=== PATIENT | female | born 1990 | race African-American/Black ===

== ENCOUNTER 2018-08-03 14:46 | Emergency (ER) | payer SELFPAY ==
[~2018-08-03] VITALS: Ht 167.6 cm; Wt 80.0 kg
[~2018-08-03 14:46] MED LIST: ABILIFY5 MG OR; ADDERALL XR10 MG OR; CLARITIN10 MG PO; FLUOXETINE20 M2 OR; SERTRALINE50 MG OR; TRIAMCINOLON0.025 % EX; ZYRTEC5 M1 OR
[2018-08-03 18:23] VITALS: BP 131/76
== END 2018-08-03 18:30 | disposition home or self-care (01) | DRG 556 ==
LOC: ED 14:46
DX: M25.562 Pain in left knee (principal); F17.200 Nicotine dependence, unspecified, uncomplicated
CPT/HCPCS: L1830

== ENCOUNTER 2018-11-01 15:23 | Emergency (ER) | payer SELFPAY ==
[~2018-11-01] VITALS: Ht 167.6 cm; Wt 72.4 kg
[2018-11-01] MEDS ORDERED: AMOXICILLIN500 MG PO (16:09)
[2018-11-01] MEDS ORDERED: CORTISPORIN OTI10 M2 AU (16:09)
[2018-11-01 16:18] VITALS: BP 119/79
== END 2018-11-01 16:18 | disposition home or self-care (01) | DRG 153 ==
LOC: ED 15:23
DX: H66.91 Otitis media, unspecified, right ear (principal); H60.91 Unspecified otitis externa, right ear; F17.210 Nicotine dependence, cigarettes, uncomplicated

== ENCOUNTER 2018-11-29 16:34 | Emergency (ER) | payer SELFPAY ==
[~2018-11-29] VITALS: Ht 167.6 cm; Wt 63.6 kg
[~2018-11-29 16:34] MED LIST changes: +AMOXICILLIN500 MG PO; +CORTISPORIN OTI10 M2 AU
[2018-11-29] MEDS ORDERED: FLEXERIL PO (18:29)
[2018-11-29] MEDS ORDERED: ULTRAM50 M1 PO (18:29)
[2018-11-29 18:40] VITALS: BP 116/74
== END 2018-11-29 18:40 | disposition home or self-care (01) | DRG 552 ==
LOC: ED 16:34
DX: M47.816 Spondylosis without myelopathy or radiculopathy, lumbar region (principal); M54.5 Low back pain; M79.605 Pain in left leg; M79.604 Pain in right leg

== ENCOUNTER 2019-03-20 08:21 | Emergency (ER) | payer SELFPAY ==
[~2019-03-20] VITALS: Ht 167.6 cm; Wt 72.8 kg
[~2019-03-20 08:21] MED LIST changes: +FLEXERIL PO; +ULTRAM50 M1 PO
[2019-03-20] MEDS ORDERED: AMOX/K CLAV875 M1 PO (08:53)
[2019-03-20 09:03] VITALS: BP 122/83
== END 2019-03-20 09:08 | disposition home or self-care (01) | DRG 816 ==
LOC: ED 08:21
DX: R59.0 Localized enlarged lymph nodes (principal); F17.210 Nicotine dependence, cigarettes, uncomplicated

== ENCOUNTER 2019-05-27 07:23 | Emergency (ER) | payer SELFPAY ==
[~2019-05-27] VITALS: Ht 170.2 cm; Wt 69.0 kg
[~2019-05-27 07:23] MED LIST changes: +AMOX/K CLAV875 M1 PO
[2019-05-27] MEDS ORDERED: AMOXICILLIN500 M2 PO ×2 (08:27→08:46)
[2019-05-27 08:35] VITALS: BP 129/82
== END 2019-05-27 08:49 | disposition home or self-care (01) | DRG 153 ==
LOC: ED 07:23
DX: J02.0 Streptococcal pharyngitis (principal); F17.210 Nicotine dependence, cigarettes, uncomplicated

== ENCOUNTER 2019-07-13 | Emergency (ER) | payer SELFPAY ==
[~2019-07-13] MED LIST changes: +AMOXICILLIN500 M2 PO
== END 2019-07-13 21:00 | disposition home or self-care (01) | DRG 156 ==
PROC: 3E1B78Z Irrigation of Ear using Irrigating Substance, Via Natural or Artificial Opening (ICD-10-PCS; principal; 2019-07-13)
DX: H61.21 Impacted cerumen, right ear (principal); F17.210 Nicotine dependence, cigarettes, uncomplicated

== ENCOUNTER 2019-07-19 | Emergency (ER) | payer SELFPAY ==
[2019-07-19] MEDS ORDERED: AMOXICILLIN875 MG PO (11:58)
== END 2019-07-19 12:14 | disposition home or self-care (01) | DRG 153 ==
DX: J02.0 Streptococcal pharyngitis (principal); F17.210 Nicotine dependence, cigarettes, uncomplicated

== ENCOUNTER 2019-08-04 10:44 | Emergency (ER) | payer SELFPAY ==
[~2019-08-04 10:44] MED LIST changes: +AMOXICILLIN875 MG PO
[2019-08-04] MEDS ORDERED: FLOXIN OTIC0.3 % AD (11:36)
[2019-08-04 12:00] VITALS: BP 131/99
== END 2019-08-04 12:00 | disposition home or self-care (01) | DRG 156 ==
LOC: ED 10:44
DX: H60.91 Unspecified otitis externa, right ear (principal); F17.210 Nicotine dependence, cigarettes, uncomplicated

== ENCOUNTER 2019-08-28 | Emergency (ER) | payer SELFPAY ==
[~2019-08-28] MED LIST changes: +FLOXIN OTIC0.3 % AD
[2019-08-28] MEDS ORDERED: PENICILLN VK500 MG PO (16:03)
[2019-08-28] MEDS ORDERED: TORADOL PO ×2 (16:03)
== END 2019-08-28 16:08 | disposition home or self-care (01) | DRG 103 ==
DX: R51 Headache (principal); K02.9 Dental caries, unspecified; F17.210 Nicotine dependence, cigarettes, uncomplicated

== ENCOUNTER 2019-12-12 13:15 | Emergency (ER) | payer SELFPAY ==
[~2019-12-12] VITALS: Ht 170.2 cm; Wt 70.0 kg
[~2019-12-12 13:15] MED LIST changes: +PENICILLN VK500 MG PO; +TORADOL PO
[2019-12-12] MEDS ORDERED: AMOXICILLIN500 M2 PO ×2 (14:04)
[2019-12-12] MEDS ORDERED: no home med (14:07)
[2019-12-12 14:27] VITALS: BP 122/92
== END 2019-12-12 14:27 | disposition home or self-care (01) | DRG 159 ==
LOC: ED 13:15
DX: K03.81 Cracked tooth (principal); F17.200 Nicotine dependence, unspecified, uncomplicated

== ENCOUNTER 2019-12-21 23:17 | Emergency (ER) | payer SELFPAY ==
[~2019-12-21] VITALS: Ht 170.2 cm; Wt 73.0 kg
[~2019-12-21 23:17] MED LIST changes: +no home med
[2019-12-22 00:07] LABS: HEMATOCRIT 35.2 % (37.0-47.0); IMMATURE GRANULOCYTES 0.1 % (0.0-5.0); MEAN CORPUSCULAR HGB 25.7 pG CALC (26.0-32.0); MEAN CORPUSCULAR HGB CONC 32.1 g/dL CAL (32.0-36.0); NEUT# 3.88 thou/uL (2.00-7.15); RED BLOOD COUNT 4.4 mill/uL (4.20-5.60); RED CELL DISTRI WIDTH 15.3 % (11.5-15.5)
[2019-12-22 00:11] LABS: HEMOGLOBIN 11.3 g/dl (12.0-16.0)
[2019-12-22 00:14] LABS: URINE BILIRUBIN - DIPSTICK NEGATIVE (NEGATIVE); URINE BLOOD DIPSTICK NEGATIVE (NEGATIVE); URINE COLOR YELLOW; URINE GLUCOSE - DIPSTICK NEGATIVE (NEGATIVE); URINE KETONE TRACE mg/dL (NEGATIVE); URINE LEUK ESTERASE NEGATIVE (NEGATIVE); URINE NITRITE - DIPSTICK NEGATIVE (Negative); URINE PROTEIN - DIPSTICK NEGATIVE (NEG-TRACE); URINE SPECIFIC GRAVITY >=1.030
[2019-12-22 00:22] LABS: ALBUMIN 4.7 g/dL (3.2-5.0); ALKALINE PHOSPHATASE 60 u/l (38-126); AMYLASE 96 u/l (30-110); ANION GAP 11 (6-22 (CALC)); BILIRUBIN, TOTAL 0.6 mg/dL (0.0-1.4); BUN 7 mg/dL (7-17); BUN/CREATININE RATIO 9 (12-20 (CALC)); CARBON DIOXIDE 24 mmol/l (22-30); CHLORIDE 106 mmol/l (95-108); CREATININE 0.8 mg/dL (0.5-1.0); GFR > 60 ML/MIN (>=60 (CALC)); GFR FOR AFR.AMER. > 60 ML/MIN (>=60 (CALC)); LIPASE 59 u/l (23-300); POTASSIUM 3.7 mmol/l (3.5-5.1); SGOT/AST 23 u/l (14-36); SODIUM 136 mmol/l (137-146); TOTAL PROTEIN 7.7 g/dL (6.3-8.2)
[2019-12-22 02:30] VITALS: BP 127/72
== END 2019-12-22 02:35 | disposition home or self-care (01) | DRG 392 ==
LOC: ED 23:17
PROVIDERS: Emergency Medicine
DX: R10.30 Lower abdominal pain, unspecified (principal); F17.210 Nicotine dependence, cigarettes, uncomplicated
CPT/HCPCS: Q9967

== ENCOUNTER 2020-02-07 19:03 | Emergency (ER) | payer SELFPAY ==
[~2020-02-07] VITALS: Ht 167.6 cm; Wt 80.8 kg
[2020-02-07 19:58] LABS: HEMATOCRIT 37.5 % (37.0-47.0); HEMOGLOBIN 11.8 g/dl (12.0-16.0); IMMATURE GRANULOCYTES 0.2 % (0.0-5.0); MEAN CELL VOLUME 79.8 fL CALC (80.0-100.0); MEAN CORPUSCULAR HGB 25.1 pG CALC (26.0-32.0); MEAN CORPUSCULAR HGB CONC 31.5 g/dL CAL (32.0-36.0); NEUT# 2.64 thou/uL (2.00-7.15); RED BLOOD COUNT 4.7 mill/uL (4.20-5.60); RED CELL DISTRI WIDTH 15.7 % (11.5-15.5)
[2020-02-07 20:05] LABS: URINE BILIRUBIN - DIPSTICK NEGATIVE (NEGATIVE); URINE BLOOD DIPSTICK NEGATIVE (NEGATIVE); URINE COLOR YELLOW; URINE GLUCOSE - DIPSTICK NEGATIVE (NEGATIVE); URINE KETONE NEGATIVE (NEGATIVE); URINE NITRITE - DIPSTICK NEGATIVE (Negative); URINE PROTEIN - DIPSTICK NEGATIVE (NEG-TRACE); URINE UROBILINOGEN - DIPSTICK 0.2 E.U./dL (0.2)
[2020-02-07 20:09] LABS: URINE LEUK ESTERASE TRACE (NEGATIVE)
[2020-02-07 20:13] LABS: ALBUMIN 4.7 g/dL (3.2-5.0); ALKALINE PHOSPHATASE 62 u/l (38-126); AMYLASE 124 u/l (30-110); ANION GAP 12 (6-22 (CALC)); BILIRUBIN, TOTAL 0.7 mg/dL (0.0-1.4); BUN 6 mg/dL (7-17); BUN/CREATININE RATIO 7 (12-20 (CALC)); CARBON DIOXIDE 25 mmol/l (22-30); CHLORIDE 104 mmol/l (95-108); CREATININE 0.8 mg/dL (0.5-1.0); GFR > 60 ML/MIN (>=60 (CALC)); GFR FOR AFR.AMER. > 60 ML/MIN (>=60 (CALC)); LIPASE 43 u/l (23-300); POTASSIUM 3.8 mmol/l (3.5-5.1); SGOT/AST 27 u/l (14-36); SODIUM 137 mmol/l (137-146); TOTAL PROTEIN 8.5 g/dL (6.3-8.2)
[2020-02-07] MEDS ORDERED: VOLTAREN75 MG PO ×2 (20:58)
[2020-02-07 21:09] VITALS: BP 120/91
== END 2020-02-07 21:09 | disposition home or self-care (01) | DRG 552 ==
LOC: ED 19:03
PROVIDERS: Family Medicine
DX: M54.5 Low back pain (principal); F17.200 Nicotine dependence, unspecified, uncomplicated

== ENCOUNTER 2020-03-26 17:35 | Emergency (ER) | payer SELFPAY ==
[~2020-03-26] VITALS: Ht 167.6 cm; Wt 90.0 kg
[~2020-03-26 17:35] MED LIST changes: +VOLTAREN75 MG PO
[2020-03-26 21:11] LABS: URINE BILIRUBIN - DIPSTICK NEGATIVE (NEGATIVE); URINE BLOOD DIPSTICK LARGE (NEGATIVE); URINE CLARITY SL CLOUDY; URINE GLUCOSE - DIPSTICK NEGATIVE (NEGATIVE); URINE KETONE NEGATIVE (NEGATIVE); URINE LEUK ESTERASE NEGATIVE (Negative); URINE NITRITE - DIPSTICK NEGATIVE (Negative); URINE PROTEIN - DIPSTICK TRACE mg/dL (NEG-TRACE); URINE SPECIFIC GRAVITY >=1.030; URINE UROBILINOGEN - DIPSTICK 0.2 E.U./dL (0.2)
[2020-03-26 21:12] LABS: URINE COLOR AMBER
[2020-03-26 21:18] LABS: URINE RBC 50-100 RBC/hpf (0-5); URINE SQUAMOUS EPITHELIAL CELL FEW EPI/hpf (0-FEW)
[2020-03-26] MEDS ORDERED: ORPHENADRINE C100 M1 PO (23:03)
[2020-03-26] MEDS ORDERED: IBUPROFEN600 MG PO (23:03)
[2020-03-26 23:18] VITALS: BP 113/79
== END 2020-03-26 23:24 | disposition home or self-care (01) | DRG 552 ==
LOC: ED 17:35
PROVIDERS: Emergency Medicine
DX: M54.5 Low back pain (principal); M54.6 Pain in thoracic spine; F17.210 Nicotine dependence, cigarettes, uncomplicated

== ENCOUNTER 2020-04-28 14:03 | Emergency (ER) | payer SELFPAY ==
[~2020-04-28 14:03] MED LIST changes: +IBUPROFEN600 MG PO; +ORPHENADRINE C100 M1 PO
[2020-04-28] MEDS ORDERED: AMOXICILLIN875 MG PO (17:50)
== END 2020-04-28 14:45 | disposition left against medical advice (07) | DRG 951 ==
LOC: ED 14:03 → LWOBS 14:45
DX: Z53.21 Procedure and treatment not carried out due to patient leaving prior to being seen by health care provider (principal)

== ENCOUNTER 2020-04-28 16:32 | Emergency (ER) | payer SELFPAY ==
[~2020-04-28] VITALS: Ht 167.6 cm; Wt 80.0 kg
[2020-04-28] MEDS ORDERED: AMOXICILLIN875 MG PO (17:50)
[2020-04-28 17:54] VITALS: BP 131/80
== END 2020-04-28 17:54 | disposition home or self-care (01) | DRG 153 ==
LOC: ED 16:32
DX: J02.9 Acute pharyngitis, unspecified (principal); F17.200 Nicotine dependence, unspecified, uncomplicated

== ENCOUNTER 2020-07-19 14:18 | Emergency (ER) | payer SELFPAY ==
[~2020-07-19] VITALS: Ht 167.6 cm; Wt 79.5 kg
[2020-07-19] MEDS ORDERED: PENICILLN VK500 MG PO (14:42)
[2020-07-19 15:04] VITALS: BP 139/70
== END 2020-07-19 15:10 | disposition home or self-care (01) | DRG 159 ==
LOC: ED 14:18
DX: K04.7 Periapical abscess without sinus (principal); K02.9 Dental caries, unspecified; F17.200 Nicotine dependence, unspecified, uncomplicated

== ENCOUNTER 2021-01-27 16:36 | Emergency (ER) | payer SELFPAY ==
[~2021-01-27] VITALS: Ht 167.6 cm; Wt 84.1 kg
[2021-01-27 20:28] VITALS: BP 126/78
== END 2021-01-27 20:28 | disposition home or self-care (01) | DRG 556 ==
LOC: ED 16:36
DX: M79.10 Myalgia, unspecified site (principal); R05 Cough; R51.9 Headache, unspecified; F17.200 Nicotine dependence, unspecified, uncomplicated; Z20.822 Contact with and (suspected) exposure to COVID-19

== ENCOUNTER 2021-03-13 22:22 | Emergency (ER) | payer SELFPAY ==
[~2021-03-13] VITALS: Ht 167.6 cm; Wt 79.0 kg
[2021-03-13 23:22] LABS: HEMATOCRIT 35.3 % (37.0-47.0); HEMOGLOBIN 11.5 g/dl (12.0-16.0); IMMATURE GRANULOCYTES 0.1 % (0.0-5.0); MEAN CELL VOLUME 80.8 fL CALC (80.0-100.0); MEAN CORPUSCULAR HGB 26.3 pG CALC (26.0-32.0); MEAN CORPUSCULAR HGB CONC 32.6 g/dL CAL (32.0-36.0); NEUT# 3.33 thou/uL (2.00-7.15); RED BLOOD COUNT 4.37 mill/uL (4.20-5.60); RED CELL DISTRI WIDTH 16.4 % (11.5-15.5)
[2021-03-13 23:40] LABS: ALBUMIN 4.5 g/dL (3.2-5.0); ALKALINE PHOSPHATASE 74 u/l (38-126); AMYLASE 109 u/l (30-110); ANION GAP 13 (6-22 (CALC)); BUN 9 mg/dL (7-17); BUN/CREATININE RATIO 12 (12-20 (CALC)); CARBON DIOXIDE 23 mmol/l (22-30); CHLORIDE 106 mmol/l (95-108); CREATININE 0.8 mg/dL (0.5-1.0); GFR > 60 ML/MIN (>=60 (CALC)); GFR FOR AFR.AMER. > 60 ML/MIN (>=60 (CALC)); LIPASE 63 u/l (23-300); POTASSIUM 3.5 mmol/l (3.5-5.1); SGOT/AST 25 u/l (14-36); SODIUM 139 mmol/l (137-146)
[2021-03-13 23:43] LABS: BILIRUBIN, TOTAL 0.4 mg/dL (0.0-1.4)
[2021-03-13 23:44] LABS: URINE BILIRUBIN - DIPSTICK NEGATIVE (NEGATIVE); URINE BLOOD DIPSTICK NEGATIVE (NEGATIVE); URINE COLOR YELLOW; URINE GLUCOSE - DIPSTICK NEGATIVE (NEGATIVE); URINE KETONE NEGATIVE (NEGATIVE); URINE LEUK ESTERASE NEGATIVE (NEGATIVE); URINE PH 6.5 (4.5-8.0); URINE PROTEIN - DIPSTICK NEGATIVE (NEG-TRACE); URINE SPECIFIC GRAVITY <=1.005; URINE UROBILINOGEN - DIPSTICK 0.2 E.U./dL (0.2)
[2021-03-13 23:46] LABS: URINE NITRITE - DIPSTICK NEGATIVE (Negative)
[2021-03-14] MEDS ORDERED: ONDANSETRON4 MG PO (01:31)
[2021-03-14 01:53] VITALS: BP 117/72
== END 2021-03-14 02:05 | disposition home or self-care (01) | DRG 866 ==
LOC: ED 22:22
PROVIDERS: Emergency Medicine
DX: B34.9 Viral infection, unspecified (principal); F17.210 Nicotine dependence, cigarettes, uncomplicated; Z20.822 Contact with and (suspected) exposure to COVID-19
CPT/HCPCS: Q9967

== ENCOUNTER 2021-04-04 15:22 | Emergency (ER) | payer SELFPAY ==
[~2021-04-04] VITALS: Ht 167.6 cm; Wt 87.2 kg
[~2021-04-04 15:22] MED LIST changes: +ONDANSETRON4 MG PO
[2021-04-04] MEDS ORDERED: AMOXICILLIN875 MG PO (15:45)
[2021-04-04] MEDS ORDERED: CORTISPORIN OTI10 M2 AD (15:45)
[2021-04-04 15:55] VITALS: BP 130/80
== END 2021-04-04 15:55 | disposition home or self-care (01) | DRG 156 ==
LOC: ED 15:22
DX: H60.91 Unspecified otitis externa, right ear (principal); H66.91 Otitis media, unspecified, right ear; F17.210 Nicotine dependence, cigarettes, uncomplicated

== ENCOUNTER 2021-05-27 16:05 | Emergency (ER) | payer SELFPAY ==
[~2021-05-27] VITALS: Ht 167.6 cm; Wt 81.8 kg
[~2021-05-27 16:05] MED LIST changes: +CORTISPORIN OTI10 M2 AD
[2021-05-27] MEDS ORDERED: CLEOCIN300 MG PO (17:23)
[2021-05-27 17:35] VITALS: BP 131/84
== END 2021-05-27 17:35 | disposition home or self-care (01) | DRG 153 ==
LOC: ED 16:05
DX: J02.9 Acute pharyngitis, unspecified (principal); I88.9 Nonspecific lymphadenitis, unspecified; F17.210 Nicotine dependence, cigarettes, uncomplicated

== ENCOUNTER 2021-06-05 18:22 | Emergency (ER) | payer SELFPAY ==
[~2021-06-05] VITALS: Ht 167.6 cm; Wt 77.2 kg
[~2021-06-05 18:22] MED LIST changes: +CLEOCIN300 MG PO
[2021-06-05 19:15] LABS: HEMATOCRIT 38.9 % (37.0-47.0); HEMOGLOBIN 12.6 g/dl (12.0-16.0); IMMATURE GRANULOCYTES 0.1 % (0.0-5.0); MEAN CORPUSCULAR HGB 25.9 pG CALC (26.0-32.0); MEAN CORPUSCULAR HGB CONC 32.4 g/dL CAL (32.0-36.0); NEUT# 5.09 thou/uL (2.00-7.15); RED BLOOD COUNT 4.86 mill/uL (4.20-5.60); RED CELL DISTRI WIDTH 16.2 % (11.5-15.5)
[2021-06-05 19:27] LABS: ALBUMIN 4.1 g/dL (3.2-5.0); ALKALINE PHOSPHATASE 62 u/l (38-126); ANION GAP 11 (6-22 (CALC)); BILIRUBIN, TOTAL 0.6 mg/dL (0.0-1.4); BUN 11 mg/dL (7-17); BUN/CREATININE RATIO 13 (12-20 (CALC)); CARBON DIOXIDE 27 mmol/l (22-30); CHLORIDE 105 mmol/l (95-108); CREATININE 0.9 mg/dL (0.5-1.0); GFR > 60 ML/MIN (>=60 (CALC)); GFR FOR AFR.AMER. > 60 ML/MIN (>=60 (CALC)); POTASSIUM 3.4 mmol/l (3.5-5.1); SGOT/AST 22 u/l (14-36); SODIUM 139 mmol/l (137-146); TOTAL PROTEIN 7.9 g/dL (6.3-8.2)
[2021-06-05 19:39] LABS: URINE BILIRUBIN - DIPSTICK NEGATIVE (NEGATIVE); URINE BLOOD DIPSTICK NEGATIVE (NEGATIVE); URINE COLOR YELLOW; URINE GLUCOSE - DIPSTICK NEGATIVE (NEGATIVE); URINE KETONE TRACE mg/dL (NEGATIVE); URINE LEUK ESTERASE NEGATIVE (NEGATIVE); URINE PH 6.5 (4.5-8.0); URINE PROTEIN - DIPSTICK NEGATIVE (NEG-TRACE); URINE UROBILINOGEN - DIPSTICK 0.2 E.U./dL (0.2)
[2021-06-05 19:43] LABS: URINE NITRITE - DIPSTICK NEGATIVE (Negative)
[2021-06-05] MEDS ORDERED: NAPROXEN500 MG PO (22:07)
[2021-06-05 22:51] VITALS: BP 120/70
== END 2021-06-05 23:05 | disposition home or self-care (01) | DRG 761 ==
LOC: ED 18:22
PROVIDERS: Family Medicine
DX: D25.9 Leiomyoma of uterus, unspecified (principal); M79.10 Myalgia, unspecified site; F17.210 Nicotine dependence, cigarettes, uncomplicated
CPT/HCPCS: Q9967

== ENCOUNTER 2022-01-28 19:01 | Emergency (ER) | payer SELFPAY ==
[~2022-01-28] VITALS: Ht 167.6 cm; Wt 81.0 kg
[~2022-01-28 19:01] MED LIST changes: +NAPROXEN500 MG PO
[2022-01-28 19:23] VITALS: BP 132/82
[2022-01-28 19:31] VITALS: BP 122/79
[2022-01-28 20:01] VITALS: BP 122/73
[2022-01-28] MEDS ORDERED: PAXLOVID PO (20:04)
[2022-01-28 20:19] VITALS: BP 122/73
== END 2022-01-28 20:25 | disposition home or self-care (01) | DRG 179 ==
LOC: ED 19:01
DX: U07.1 COVID-19 (principal); R51.9 Headache, unspecified; M54.2 Cervicalgia; R09.81 Nasal congestion; R68.83 Chills (without fever); R19.7 Diarrhea, unspecified; F17.200 Nicotine dependence, unspecified, uncomplicated

== ENCOUNTER 2022-04-07 16:04 | Emergency (ER) | payer SELFPAY ==
[~2022-04-07] VITALS: Ht 167.6 cm; Wt 95.0 kg
[~2022-04-07 16:04] MED LIST changes: +PAXLOVID PO
[2022-04-07 16:38] LABS: URINE BILIRUBIN - DIPSTICK NEGATIVE (NEGATIVE); URINE BLOOD DIPSTICK NEGATIVE (NEGATIVE); URINE COLOR YELLOW; URINE GLUCOSE - DIPSTICK NEGATIVE (NEGATIVE); URINE KETONE NEGATIVE (NEGATIVE); URINE LEUK ESTERASE TRACE (NEGATIVE); URINE PROTEIN - DIPSTICK NEGATIVE (NEG-TRACE); URINE SPECIFIC GRAVITY 1.025; URINE UROBILINOGEN - DIPSTICK 0.2 E.U./dL (0.2)
[2022-04-07 16:40] LABS: URINE NITRITE - DIPSTICK NEGATIVE (Negative)
[2022-04-07 16:43] LABS: HEMATOCRIT 36.5 % (37.0-47.0); HEMOGLOBIN 12.1 g/dl (12.0-16.0); IMMATURE GRANULOCYTES 0.1 % (0.0-5.0); MEAN CELL VOLUME 79.7 fL CALC (80.0-100.0); MEAN CORPUSCULAR HGB 26.4 pG CALC (26.0-32.0); MEAN CORPUSCULAR HGB CONC 33.2 g/dL CAL (32.0-36.0); NEUT# 3.26 thou/uL (2.00-7.15); RED BLOOD COUNT 4.58 mill/uL (4.20-5.60)
[2022-04-07 16:50] LABS: ALBUMIN 4.9 g/dL (3.2-5.0); ALKALINE PHOSPHATASE 51 u/l (38-126); ANION GAP 14 (6-22 (CALC)); BILIRUBIN, TOTAL 0.5 mg/dL (0.0-1.4); BUN 7 mg/dL (7-17); BUN/CREATININE RATIO 10 (12-20 (CALC)); CARBON DIOXIDE 23 mmol/l (22-30); CHLORIDE 108 mmol/l (95-108); CREATININE 0.8 mg/dL (0.5-1.0); GFR FOR AFR.AMER. > 60 ML/MIN (>=60 (CALC)); GFR OTHER RACES > 60 ML/MIN (>=60 (CALC)); LIPASE 78 u/l (23-300); POTASSIUM 3.5 mmol/l (3.5-5.1); SGOT/AST 25 u/l (14-36); SODIUM 142 mmol/l (137-146)
[2022-04-07] MEDS ORDERED: KEFLEX500 MG PO (19:27)
[2022-04-07] MEDS ORDERED: NAPROXEN500 MG PO (19:27)
[2022-04-07 20:30] VITALS: BP 131/77
== END 2022-04-07 20:30 | disposition home or self-care (01) | DRG 392 ==
LOC: ED 16:04
PROVIDERS: Nurse Practitioner
DX: R10.30 Lower abdominal pain, unspecified (principal); D25.9 Leiomyoma of uterus, unspecified
CPT/HCPCS: Q9967

== ENCOUNTER 2022-12-22 14:34 | Emergency (ER) | payer SELFPAY ==
[~2022-12-22] VITALS: Ht 167.6 cm; Wt 82.0 kg
[~2022-12-22 14:34] MED LIST changes: +KEFLEX500 MG PO
[2022-12-22 14:51] VITALS: BP 126/92
[2022-12-22 15:00] VITALS: BP 127/91
[2022-12-22 15:29] LABS: URINE BILIRUBIN - DIPSTICK NEGATIVE (NEGATIVE); URINE BLOOD DIPSTICK MODERATE (NEGATIVE); URINE COLOR YELLOW; URINE GLUCOSE - DIPSTICK NEGATIVE (NEGATIVE); URINE KETONE NEGATIVE (NEGATIVE); URINE LEUK ESTERASE NEGATIVE (NEGATIVE); URINE PH 8.5 (4.5-8.0); URINE PROTEIN - DIPSTICK NEGATIVE (NEG-TRACE)
[2022-12-22 15:39] LABS: URINE NITRITE - DIPSTICK NEGATIVE (Negative)
[2022-12-22 15:40] LABS: URINE SQUAMOUS EPITHELIAL CELL FEW EPI/hpf (0-FEW); URINE WBC 0-2 WBC/hpf (0-5)
[2022-12-22 16:46] LABS: BASO% 0.3 % (0-3); EOS% 0.6 % (0-8); HEMOGLOBIN 11.4 g/dl (12.0-16.0); LYMPH% 45.7 % (15-41); MEAN CELL VOLUME 80.2 fL CALC (80.0-100.0); MEAN CORPUSCULAR HGB 25.4 pG CALC (26.0-32.0); MEAN CORPUSCULAR HGB CONC 31.7 g/dL CAL (32.0-36.0); MONO% 8.1 % (2-13); NEUT# 3.08 thou/uL (2.00-7.15); NEUT% 45.3 % (42-76); RED BLOOD COUNT 4.49 mill/uL (4.20-5.60); RED CELL DISTRI WIDTH 15.8 % (11.5-15.5)
[2022-12-22 16:53] LABS: ALBUMIN 4.3 g/dL (3.2-5.0); ALKALINE PHOSPHATASE 51 u/l (38-126); ANION GAP 12 (6-22 (CALC)); BILIRUBIN, TOTAL 0.6 mg/dL (0.02-1.3); BUN 9 mg/dL (7-17); BUN/CREATININE RATIO 10 (12-20 (CALC)); CARBON DIOXIDE 26 mmol/l (22-30); CHLORIDE 107 mmol/l (95-108); CREATININE 0.9 mg/dL (0.5-1.0); GFR FOR AFR.AMER. > 60 ML/MIN (>=60 (CALC)); GFR OTHER RACES > 60 ML/MIN (>=60 (CALC)); LIPASE 40 u/l (23-300); POTASSIUM 4.2 mmol/l (3.5-5.1); SGOT/AST 21 u/l (14-36); SODIUM 141 mmol/l (137-146); TOTAL PROTEIN 7.3 g/dL (6.3-8.2)
[2022-12-22] MEDS ORDERED: TAMSULOSIN0.4 MG PO (19:23)
[2022-12-22] MEDS ORDERED: PERCOCET 5/325M1 TAB PO (19:23)
[2022-12-22] MEDS ORDERED: TORADOL PO (19:23)
[2022-12-22 19:35] VITALS: BP 127/91
== END 2022-12-22 19:54 | disposition home or self-care (01) | DRG 694 ==
LOC: ED 14:34
PROVIDERS: Nurse Practitioner
DX: N20.1 Calculus of ureter (principal); F17.200 Nicotine dependence, unspecified, uncomplicated

== ENCOUNTER 2023-07-06 03:08 | Emergency (ER) | payer SELFPAY ==
[~2023-07-06] VITALS: Ht 167.6 cm; Wt 81.0 kg
[~2023-07-06 03:08] MED LIST changes: +PERCOCET 5/325M1 TAB PO; +TAMSULOSIN0.4 MG PO
[2023-07-06 06:04] LABS: BASO% 0.4 % (0-3); EOS% 0.6 % (0-8); HEMATOCRIT 36.8 % (37.0-47.0); IMMATURE GRANULOCYTES 0.2 % (0.0-5.0); LYMPH% 44.5 % (15-41); MEAN CELL VOLUME 81.1 fL CALC (80.0-100.0); MEAN CORPUSCULAR HGB 26.4 pG CALC (26.0-32.0); MEAN CORPUSCULAR HGB CONC 32.6 g/dL CAL (32.0-36.0); MONO% 8.7 % (2-13); NEUT# 2.41 thou/uL (2.00-7.15); NEUT% 45.6 % (42-76); RED BLOOD COUNT 4.54 mill/uL (4.20-5.60); RED CELL DISTRI WIDTH 14.8 % (11.5-15.5)
[2023-07-06 06:06] LABS: URINE BLOOD DIPSTICK Negative (NEGATIVE); URINE GLUCOSE - DIPSTICK Negative (NEGATIVE); URINE KETONE Trace mg/dL (NEGATIVE); URINE LEUK ESTERASE Negative (NEGATIVE); URINE NITRITE - DIPSTICK Negative (Negative); URINE PH 7.5 (4.5-8.0); URINE PROTEIN - DIPSTICK 30 mg/dL (NEG-TRACE)
[2023-07-06 06:07] LABS: URINE COLOR Yellow
[2023-07-06 06:13] LABS: URINE AMORPH SEDIMENT MANY hpf (NONE-FEW); URINE BACTERIA FEW hpf; URINE RBC 0-2 RBC/hpf (0-5); URINE SQUAMOUS EPITHELIAL CELL FEW EPI/hpf (0-FEW)
[2023-07-06 06:14] LABS: ALBUMIN 4.5 g/dL (3.2-5.0); ANION GAP 11 (6-22 (CALC)); BILIRUBIN, TOTAL 0.6 mg/dL (0.02-1.3); BUN 12 mg/dL (7-17); BUN/CREATININE RATIO 16 (12-20 (CALC)); CARBON DIOXIDE 25 mmol/l (22-30); CHLORIDE 111 mmol/l (95-108); CPK 240 u/l (30-135); CREATININE 0.8 mg/dL (0.5-1.0); GFR FOR AFR.AMER. > 60 ML/MIN (>=60 (CALC)); GFR OTHER RACES > 60 ML/MIN (>=60 (CALC)); LIPASE 81 u/l (23-300); POTASSIUM 3.8 mmol/l (3.5-5.1); SGOT/AST 24 u/l (14-36); SODIUM 143 mmol/l (137-146); TOTAL PROTEIN 7.4 g/dL (6.3-8.2)
[2023-07-06 06:19] LABS: ALKALINE PHOSPHATASE 78 u/l (38-126)
[2023-07-06] MEDS ORDERED: MOTRIN800 MG PO (07:18)
[2023-07-06] MEDS ORDERED: FLEXERIL5 M1 PO (07:18)
[2023-07-06 07:24] VITALS: BP 106/7
== END 2023-07-06 07:28 | disposition home or self-care (01) | DRG 392 ==
LOC: ED 03:08
PROVIDERS: Internal Medicine
DX: R10.9 Unspecified abdominal pain (principal); F17.200 Nicotine dependence, unspecified, uncomplicated; Z87.442 Personal history of urinary calculi